=== PATIENT | male | born 1965 | race Caucasian/White ===

== ENCOUNTER 2017-04-27 21:25 | Emergency (ER) | payer MEDICAID ==
[~2017-04-27] VITALS: Ht 167.6 cm; Wt 65.8 kg
[2017-04-27 21:30] VITALS: BP 123/80
[2017-04-28] MEDS ORDERED: IBUPROFEN 600 MG TAB PO ONE (00:30)
[2017-04-28] MEDS ORDERED: TETANUS-DIPTH-ACEL PERTUSSIS 0.5ML SYRG IM ONE (00:45)
== END 2017-04-28 00:52 | disposition home or self-care (01) ==
LOC: ER 21:27
DX: S01.81XA Laceration without foreign body of other part of head, initial encounter (principal); S00.93XA Contusion of unspecified part of head, initial encounter; F17.210 Nicotine dependence, cigarettes, uncomplicated; F12.10 Cannabis abuse, uncomplicated; W22.8XXA Striking against or struck by other objects, initial encounter; Y93.89 Activity, other specified; Y99.8 Other external cause status; Y92.89 Other specified places as the place of occurrence of the external cause
CPT/HCPCS: 12013; 70450; 70486; 90471

== ENCOUNTER 2022-04-20 18:15 | Inpatient (IN) | payer MEDICAID ==
[~2022-04-20] VITALS: Ht 172.7 cm; Wt 57.0 kg
[2022-04-20] MEDS ORDERED: SODIUM CHLORIDE 0.9% 1,000 ML IVB ONE (18:30)
[2022-04-20] MEDS ORDERED: HALOPERIDOL LACTATE 5 MG/ML INJ VIAL IM ONE (18:30)
[2022-04-20] MEDS ORDERED: diphenhdrAMINE HCL 50 MG/1 ML VL IV ONE (18:30)
[2022-04-20] MEDS ORDERED: LORazepam 2MG/ML-1ML VIAL IV ONE (18:30)
[2022-04-20 19:02] LABS: Basophils # (auto) 0.1 10 ^3/uL (0-0.2); Basophils % (auto) 0.7 % (0.0-2.0); Eosinophils # (auto) 0 10 ^3/uL (0-0.8); Eosinophils % (auto) 0.1 % (0.0-7.0); Hematocrit 42.2 % (41.0-53.0); Hemoglobin 14.4 g/dL (13.5-17.5); Lymphocytes # (auto) 1.4 10 ^3/uL (0.4-5.4); Mean Corpuscular Hemoglobin 29.4 pg (28.0-32.0); Mean Corpuscular Volume 86.5 fL (80.0-100.0); Monocytes # (auto) 0.8 10 ^3/uL (0-1.3); Monocytes % (auto) 10.1 % (0.0-12.0); Neutrophils % (auto) 72.1 % (37.0-80.0); Nucleated Red Blood Cells % 0.1 %; Red Blood Cells 4.88 10^6/uL (4.5-5.90); White Blood Cell 8.3 10^3/uL (4.4-10.8)
[2022-04-20 19:14] LABS: Alanine Aminotransferase 30 U/L (16-61); Albumin 4.5 g/dL (3.4-5.0); Anion Gap 10 (5-15); Aspartate Aminotransferase 17 U/L (15-37); BUN/Creatinine Ratio 27.1; Blood Alcohol < 3.0 mg/dL (0-5); Blood Urea Nitrogen 26 mg/dL (7-18); Calcium 9.2 mg/dL (8.5-10.1); Carbon Dioxide 24 mmol/L (21-32); Chloride 112 mmol/L (98-107); GFR African American 104 mL/min; GFR Non-African American 86 mL/min; Glucose 105 mg/dL (74-106); Potassium 3.9 mmol/L (3.5-5.1); Sodium 146 mmol/L (136-145)
[2022-04-20 19:17] LABS: Alkaline Phosphatase 56 U/L (45-117); Bilirubin, Total 0.6 mg/dL (0.2-1.0); Total Protein 7.5 g/dL (6.4-8.2)
[2022-04-20] MEDS ORDERED: HYDROcodone-ACET 5/325MG TAB PO PRN (22:30)
[2022-04-20] MEDS ORDERED: ACETAMINOPHEN 325 MG TAB PO PRN (22:30)
[2022-04-20] MEDS ORDERED: NITROGLYCERIN 0.4 MG SL TAB SL PRN (22:30)
[2022-04-20] MEDS ORDERED: DOCUSATE SOD 100 MG CAP PO PRN (22:30)
[2022-04-20] MEDS ORDERED: ONDANSETRON HCL 4 MG/2 ML VIAL IV PRN (22:30)
[2022-04-20] MEDS ORDERED: MORPHINE SULFATE INJ 2 MG/ml SYRG IV PRN ×2 (22:30)
[2022-04-20] MEDS: HALOPERIDOL LACTATE 5 MG/ML INJ VIAL IM PRN (23:45)
[2022-04-20] MEDS: SODIUM CHLORIDE 0.9% 1,000 ML IV SCH (23:45)
[2022-04-21] MEDS: SODIUM CHLORIDE 0.9% 1,000 ML IV SCH ×3 (07:04→23:30)
[2022-04-21] MEDS ORDERED: hydrOXYzine 25 MG TAB or CAP PO PRN (10:00)
[2022-04-21 10:21] VITALS: BP 127/61
[2022-04-21 10:23] LABS: Basophils # (auto) 0 10 ^3/uL (0-0.2); Basophils % (auto) 0.5 % (0.0-2.0); Eosinophils # (auto) 0 10 ^3/uL (0-0.8); Eosinophils % (auto) 0.5 % (0.0-7.0); Hematocrit 37.2 % (41.0-53.0); Hemoglobin 12.6 g/dL (13.5-17.5); Lymphocytes % (auto) 22.7 % (10.0-50.0); Mean Corpuscular Hemoglobin 29.3 pg (28.0-32.0); Mean Corpuscular Hgb Conc. 33.8 g/dL (32.0-36.0); Mean Corpuscular Volume 86.7 fL (80.0-100.0); Monocytes # (auto) 0.8 10 ^3/uL (0-1.3); Monocytes % (auto) 8.9 % (0.0-12.0); Neutrophils % (auto) 67.4 % (37.0-80.0); Red Cell Distribution Width 14.1 % (11.8-14.3); White Blood Cell 8.9 10^3/uL (4.4-10.8)
[2022-04-21 10:32] LABS: Albumin 3.5 g/dL (3.4-5.0); Calcium 8.4 mg/dL (8.5-10.1); Potassium 3.6 mmol/L (3.5-5.1)
[2022-04-21 10:35] LABS: BUN/Creatinine Ratio 26.8; Bilirubin, Total 0.5 mg/dL (0.2-1.0); Total Protein 6.2 g/dL (6.4-8.2)
[2022-04-21 13:00] VITALS: BP 93/52
[2022-04-21 17:00] VITALS: BP 90/55
[2022-04-21 21:30] LABS: Urine Bacteria FEW /hpf (None Seen); Urine Blood Negative /uL (Negative); Urine Hyaline Cast FEW /lpf (0 - 2); Urine Mucus FEW (None Seen); Urine Specific Gravity 1.038 (1.001-1.035); Urine WBC 8 /hpf (0 - 3)
[2022-04-21 21:33] LABS: Alcohol, Urine < 3.0 mg/dL (0-10); Amphetamine Screen, Urine NEGATIVE (NEGATIVE); Barbiturate Scree,Urine NEGATIVE (NEGATIVE); Benzodiazephine Screen, Urine POSITIVE (NEGATIVE); Cannabinoid Screen, Urine POSITIVE (NEGATIVE); Cocaine Screen, Urine NEGATIVE (NEGATIVE); Opiate Scree,Urine NEGATIVE (NEGATIVE); Phencyclidine Screen, Urine NEGATIVE (NEGATIVE)
[2022-04-21 22:00] VITALS: BP 111/67
[2022-04-22 04:40] VITALS: BP 102/68
[2022-04-22] MEDS: SODIUM CHLORIDE 0.9% 1,000 ML IV SCH ×2 (07:24→15:45)
[2022-04-22 17:19] VITALS: BP 120/85
[2022-04-22 22:25] VITALS: BP 106/77
[2022-04-23] MEDS: SODIUM CHLORIDE 0.9% 1,000 ML IV SCH ×3 (00:47→17:10)
[2022-04-23 09:00] VITALS: BP 119/74
[2022-04-23 13:00] VITALS: BP 133/87
[2022-04-23 17:00] VITALS: BP 127/86
[2022-04-23] MEDS: risperiDONE 1 MG TAB PO SCH (21:22)
[2022-04-23 21:42] VITALS: BP 121/79
[2022-04-24] MEDS: SODIUM CHLORIDE 0.9% 1,000 ML IV SCH ×3 (04:18→18:10)
[2022-04-24 05:00] VITALS: BP 139/97
[2022-04-24 08:21] VITALS: BP 135/92
[2022-04-24] MEDS: risperiDONE 1 MG TAB PO SCH ×2 (09:40→22:04)
[2022-04-24 12:02] VITALS: BP 139/96
[2022-04-24 16:02] VITALS: BP 137/91
[2022-04-24 22:00] VITALS: BP 111/72
[2022-04-25] MEDS: SODIUM CHLORIDE 0.9% 1,000 ML IV SCH ×3 (02:30→19:10)
[2022-04-25 05:00] VITALS: BP 133/83
[2022-04-25 09:00] VITALS: BP 122/81
[2022-04-25] MEDS: risperiDONE 1 MG TAB PO SCH ×2 (09:23→22:13)
[2022-04-25 13:00] VITALS: BP 127/81
[2022-04-25 17:00] VITALS: BP 101/70
[2022-04-25 21:36] VITALS: BP 123/83
[2022-04-26] MEDS: SODIUM CHLORIDE 0.9% 1,000 ML IV SCH ×3 (03:30→20:10)
[2022-04-26 05:08] VITALS: BP 125/83
[2022-04-26 06:18] LABS: Basophils # (auto) 0.1 10 ^3/uL (0-0.2); Basophils % (auto) 0.8 % (0.0-2.0); Eosinophils # (auto) 0.2 10 ^3/uL (0-0.8); Eosinophils % (auto) 2.4 % (0.0-7.0); Hematocrit 48.9 % (41.0-53.0); Hemoglobin 16.2 g/dL (13.5-17.5); Lymphocytes # (auto) 3.6 10 ^3/uL (0.4-5.4); Lymphocytes % (auto) 37.8 % (10.0-50.0); Mean Corpuscular Hemoglobin 28.8 pg (28.0-32.0); Mean Corpuscular Hgb Conc. 33.2 g/dL (32.0-36.0); Mean Corpuscular Volume 86.9 fL (80.0-100.0); Monocytes # (auto) 0.7 10 ^3/uL (0-1.3); Monocytes % (auto) 7.1 % (0.0-12.0); Neutrophils # (auto) 4.9 10 ^3/uL (1.6-8.6); Neutrophils % (auto) 51.9 % (37.0-80.0); Nucleated Red Blood Cells % 0.1 %; Red Blood Cells 5.63 10^6/uL (4.5-5.90); White Blood Cell 9.5 10^3/uL (4.4-10.8)
[2022-04-26 06:36] LABS: BUN/Creatinine Ratio 20.5; Calcium 9.3 mg/dL (8.5-10.1); Potassium 4.3 mmol/L (3.5-5.1)
[2022-04-26 09:00] VITALS: BP 124/83
[2022-04-26] MEDS: risperiDONE 1 MG TAB PO SCH ×2 (10:00→21:52)
[2022-04-26] MEDS: HALOPERIDOL LACTATE 5 MG/ML INJ VIAL IM PRN (10:54)
[2022-04-26 13:00] VITALS: BP 139/88
[2022-04-26 17:00] VITALS: BP 120/79
[2022-04-26 22:00] VITALS: BP 111/65
[2022-04-27] MEDS: HALOPERIDOL LACTATE 5 MG/ML INJ VIAL IM PRN (02:15)
[2022-04-27] MEDS: SODIUM CHLORIDE 0.9% 1,000 ML IV SCH ×4 (04:30→21:57)
[2022-04-27 08:49] VITALS: BP 134/83
[2022-04-27] MEDS: risperiDONE 1 MG TAB PO SCH ×2 (10:30→21:52)
[2022-04-27 13:00] VITALS: BP 124/76
[2022-04-27 16:51] VITALS: BP 134/82
[2022-04-27 22:04] VITALS: BP 135/83
[2022-04-28] MEDS: HALOPERIDOL LACTATE 5 MG/ML INJ VIAL IM PRN (02:02)
[2022-04-28 04:58] VITALS: BP 113/73
[2022-04-28 09:14] VITALS: BP_SYST 113; BP_SYST 120; BP_DIAS 73; BP_DIAS 74
[2022-04-28] MEDS: risperiDONE 1 MG TAB PO SCH (09:55)
[2022-04-28] MEDS ORDERED: OLANZapine 5 MG TAB PO SCH (11:45)
[2022-04-28 13:00] VITALS: BP 123/77
[2022-04-28] MEDS: SODIUM CHLORIDE 0.9% 1,000 ML IV SCH (13:50)
[2022-04-28 17:00] VITALS: BP 132/79
[2022-04-28] MEDS ORDERED: risperiDONE 1 MG TAB PO SCH (22:00)
[2022-04-28] MEDS ORDERED: QUEtiapine FUMARATE 25 MG TAB PO SCH (22:00)
== END 2022-04-28 19:21 | disposition left against medical advice (07) | DRG 751 ==
LOC: ER 18:15 → EDBD 18:15 → TELE 22:25 → TELE-WESTW 04-21 09:26 → WEST WING 04-24 18:42 → TELE-EAST 04-26 16:17 → EAST 04-26 19:18
PROVIDERS: ADMIT Internal Medicine; ATTEND Internal Medicine
DX: F23 Brief psychotic disorder (principal); F17.210 Nicotine dependence, cigarettes, uncomplicated; F19.10 Other psychoactive substance abuse, uncomplicated; Z20.822 Contact with and (suspected) exposure to COVID-19
CPT/HCPCS: 36415; 70450; 80048; 80053; 80307; 80320; 81001; 85025; 96361; 96372; 96374; 96375; G0378

== ENCOUNTER 2022-06-23 09:10 | Emergency (ER) | payer MEDICAID ==
[~2022-06-23] VITALS: Ht 205.7 cm; Wt 77.0 kg
[2022-06-23 09:20] VITALS: BP 118/81
[2022-06-23 09:59] LABS: Basophils # (auto) 0.1 10 ^3/uL (0-0.2); Basophils % (auto) 0.8 % (0.0-2.0); Eosinophils # (auto) 0 10 ^3/uL (0-0.8); Eosinophils % (auto) 0.4 % (0.0-7.0); Hemoglobin 13.9 g/dL (13.5-17.5); Lymphocytes # (auto) 1.7 10 ^3/uL (0.4-5.4); Lymphocytes % (auto) 21.7 % (10.0-50.0); Mean Corpuscular Hemoglobin 29.4 pg (28.0-32.0); Mean Corpuscular Hgb Conc. 33.1 g/dL (32.0-36.0); Mean Corpuscular Volume 88.8 fL (80.0-100.0); Monocytes # (auto) 0.6 10 ^3/uL (0-1.3); Monocytes % (auto) 7.5 % (0.0-12.0); Neutrophils # (auto) 5.4 10 ^3/uL (1.6-8.6); Neutrophils % (auto) 69.6 % (37.0-80.0); Nucleated Red Blood Cells % 0.1 %; Red Blood Cells 4.73 10^6/uL (4.5-5.90); Red Cell Distribution Width 14.2 % (11.8-14.3); White Blood Cell 7.8 10^3/uL (4.4-10.8)
[2022-06-23 10:09] LABS: Albumin 3.9 g/dL (3.4-5.0); Calcium 8.6 mg/dL (8.5-10.1); Potassium 4.2 mmol/L (3.5-5.1)
[2022-06-23 10:13] LABS: BUN/Creatinine Ratio 22.7; Bilirubin, Total 0.3 mg/dL (0.2-1.0); Total Protein 6.9 g/dL (6.4-8.2)
[2022-06-23] MEDS: LORazepam 2MG/ML-1ML VIAL ONE (11:10)
[2022-06-23] MEDS: LORazepam 2MG/ML-1ML VIAL IV ONE (11:26)
[2022-06-23 11:51] LABS: Urine Bacteria FEW /hpf (None Seen); Urine Blood Negative /uL (Negative); Urine Mucus FEW (None Seen); Urine Specific Gravity 1.022 (1.001-1.035); Urine WBC 88 /hpf (0 - 3)
[2022-06-23] MEDS: CIPROFLOXACIN HCL 500 MG TAB PO ONE (12:31)
[2022-06-23 12:57] LABS: Alcohol, Urine < 3.0 mg/dL (0-10); Barbiturate Scree,Urine NEGATIVE (NEGATIVE); Benzodiazephine Screen, Urine NEGATIVE (NEGATIVE); Cocaine Screen, Urine NEGATIVE (NEGATIVE); Phencyclidine Screen, Urine NEGATIVE (NEGATIVE)
[2022-06-23 13:05] LABS: Amphetamine Screen, Urine NEGATIVE (NEGATIVE); Cannabinoid Screen, Urine POSITIVE (NEGATIVE); Opiate Scree,Urine NEGATIVE (NEGATIVE)
[2022-06-23] MEDS ORDERED: CIPR-173 PO (15:47)
== END 2022-06-23 16:36 | disposition home or self-care (01) ==
LOC: ER 09:10 → EDBD 09:10 → ER 16:36
DX: R41.82 Altered mental status, unspecified (principal); F20.9 Schizophrenia, unspecified; F15.10 Other stimulant abuse, uncomplicated; F17.210 Nicotine dependence, cigarettes, uncomplicated; F14.10 Cocaine abuse, uncomplicated
CPT/HCPCS: 36415; 80053; 80307; 81001; 85025; 87040; 93005; 96374; 99284; J2060

== ENCOUNTER 2022-07-12 16:21 | Inpatient (IN) | payer MEDICAID ==
[~2022-07-12] VITALS: Ht 170.2 cm; Wt 62.7 kg
[~2022-07-12 16:21] MED LIST: CIPR-173 PO
[2022-07-12] MEDS ORDERED: diphenhdrAMINE HCL 50 MG/1 ML VL IV ONE (16:30)
[2022-07-12] MEDS ORDERED: LORazepam 2MG/ML-1ML VIAL IV ONE (16:30)
[2022-07-12] MEDS ORDERED: HALOPERIDOL LACTATE 5 MG/ML INJ VIAL IM ONE (16:30)
[2022-07-12 18:34] LABS: Basophils # (auto) 0 10 ^3/uL (0-0.2); Basophils % (auto) 0.4 % (0.0-2.0); Eosinophils # (auto) 0.1 10 ^3/uL (0-0.8); Eosinophils % (auto) 1.2 % (0.0-7.0); Hematocrit 39.6 % (41.0-53.0); Hemoglobin 13.2 g/dL (13.5-17.5); Lymphocytes # (auto) 2.9 10 ^3/uL (0.4-5.4); Mean Corpuscular Hemoglobin 29.4 pg (28.0-32.0); Mean Corpuscular Hgb Conc. 33.3 g/dL (32.0-36.0); Mean Corpuscular Volume 88.4 fL (80.0-100.0); Monocytes # (auto) 0.7 10 ^3/uL (0-1.3); Monocytes % (auto) 8.2 % (0.0-12.0); Neutrophils # (auto) 4.9 10 ^3/uL (1.6-8.6); Neutrophils % (auto) 57.2 % (37.0-80.0); Red Blood Cells 4.48 10^6/uL (4.5-5.90); White Blood Cell 8.7 10^3/uL (4.4-10.8)
[2022-07-12 18:51] LABS: Anion Gap 3 (5-15); Blood Alcohol < 3.0 mg/dL (0-5); Blood Urea Nitrogen 19 mg/dL (7-18); Calcium 8.7 mg/dL (8.5-10.1); Carbon Dioxide 35 mmol/L (21-32); Chloride 101 mmol/L (98-107); Glucose 91 mg/dL (74-106); Potassium 4.3 mmol/L (3.5-5.1); Sodium 139 mmol/L (136-145)
[2022-07-12 18:55] LABS: Alcohol, Urine < 3.0 mg/dL (0-10); Amphetamine Screen, Urine NEGATIVE (NEGATIVE); Barbiturate Scree,Urine NEGATIVE (NEGATIVE); Benzodiazephine Screen, Urine NEGATIVE (NEGATIVE); Cannabinoid Screen, Urine NEGATIVE (NEGATIVE); Cocaine Screen, Urine NEGATIVE (NEGATIVE); Opiate Scree,Urine NEGATIVE (NEGATIVE); Phencyclidine Screen, Urine NEGATIVE (NEGATIVE)
[2022-07-12 18:55] LABS: Alanine Aminotransferase 35 U/L (16-61); Alkaline Phosphatase 87 U/L (45-117); Aspartate Aminotransferase 13 U/L (15-37); BUN/Creatinine Ratio 20.7; Bilirubin, Total 0.2 mg/dL (0.2-1.0); GFR African American 109 mL/min; GFR Non-African American 90 mL/min; Total Protein 6.4 g/dL (6.4-8.2)
[2022-07-13] MEDS ORDERED: LORazepam 2MG/ML-1ML VIAL IM ONE ×2 (01:00→01:15)
[2022-07-13] MEDS ORDERED: HALOPERIDOL LACTATE 5 MG/ML INJ VIAL IM ONE ×2 (01:00→01:15)
[2022-07-13] MEDS ORDERED: diphenhdrAMINE HCL 50 MG/1 ML VL IM ONE (01:00)
[2022-07-13] MEDS ORDERED: OLANZapine 5 MG TAB PO SCH (22:00)
[2022-07-13] MEDS: OLANZapine 5 MG TAB PO SCH (22:58)
[2022-07-13 23:51] LABS: Urine Amorphous Crystal FEW /hpf (None Seen); Urine Bacteria FEW /hpf (None Seen); Urine Blood Negative /uL (Negative); Urine Specific Gravity 1.016 (1.001-1.035); Urine WBC 2 /hpf (0 - 3)
[2022-07-14] MEDS: OLANZapine 5 MG TAB PO SCH ×2 (09:45→22:00)
[2022-07-15] MEDS ORDERED: diphenhdrAMINE HCL 50 MG/1 ML VL IM ONE (05:30)
[2022-07-15] MEDS: OLANZapine 5 MG TAB PO SCH ×2 (10:07→22:31)
[2022-07-15] MEDS ORDERED: LORazepam 2MG/ML-1ML VIAL IM ONE (12:45)
[2022-07-15] MEDS ORDERED: MORPHINE SULFATE INJ 2 MG/ml SYRG IV PRN ×2 (14:00→14:45)
[2022-07-15] MEDS ORDERED: NITROGLYCERIN 0.4 MG SL TAB SL PRN ×2 (14:00→14:45)
[2022-07-15] MEDS ORDERED: ONDANSETRON HCL 4 MG/2 ML VIAL IV PRN (14:45)
[2022-07-15] MEDS ORDERED: ACETAMINOPHEN 325 MG TAB PO PRN (14:45)
[2022-07-15] MEDS ORDERED: HYDROcodone-ACET 5/325MG TAB PO PRN (14:45)
[2022-07-15 14:48] LABS: Basophils # (auto) 0.1 10 ^3/uL (0-0.2); Basophils % (auto) 0.8 % (0.0-2.0); Eosinophils # (auto) 0.1 10 ^3/uL (0-0.8); Eosinophils % (auto) 1.1 % (0.0-7.0); Hematocrit 48.8 % (41.0-53.0); Lymphocytes # (auto) 2.2 10 ^3/uL (0.4-5.4); Lymphocytes % (auto) 24.5 % (10.0-50.0); Mean Corpuscular Hemoglobin 29.2 pg (28.0-32.0); Mean Corpuscular Hgb Conc. 32.7 g/dL (32.0-36.0); Mean Corpuscular Volume 89.1 fL (80.0-100.0); Monocytes # (auto) 0.5 10 ^3/uL (0-1.3); Monocytes % (auto) 5.7 % (0.0-12.0); Neutrophils # (auto) 6.2 10 ^3/uL (1.6-8.6); Neutrophils % (auto) 67.9 % (37.0-80.0); Nucleated Red Blood Cells % 0.1 %; Red Blood Cells 5.48 10^6/uL (4.5-5.90); Red Cell Distribution Width 13.9 % (11.8-14.3); White Blood Cell 9.2 10^3/uL (4.4-10.8)
[2022-07-15 15:07] LABS: BUN/Creatinine Ratio 19.2; Calcium 8.9 mg/dL (8.5-10.1); Potassium 4.9 mmol/L (3.5-5.1)
[2022-07-15 15:10] LABS: Bilirubin, Total 0.4 mg/dL (0.2-1.0); Total Protein 7.2 g/dL (6.4-8.2)
[2022-07-15] MEDS ORDERED: LORazepam 2MG/ML-1ML VIAL IV PRN (20:30)
[2022-07-16 06:34] LABS: Basophils # (auto) 0 10 ^3/uL (0-0.2); Basophils % (auto) 0.5 % (0.0-2.0); Eosinophils # (auto) 0.2 10 ^3/uL (0-0.8); Eosinophils % (auto) 2.2 % (0.0-7.0); Hematocrit 42.9 % (41.0-53.0); Hemoglobin 14.2 g/dL (13.5-17.5); Lymphocytes # (auto) 3.7 10 ^3/uL (0.4-5.4); Lymphocytes % (auto) 42.7 % (10.0-50.0); Mean Corpuscular Hemoglobin 29.2 pg (28.0-32.0); Mean Corpuscular Hgb Conc. 33.2 g/dL (32.0-36.0); Mean Corpuscular Volume 87.9 fL (80.0-100.0); Monocytes # (auto) 0.6 10 ^3/uL (0-1.3); Monocytes % (auto) 7.5 % (0.0-12.0); Neutrophils # (auto) 4.1 10 ^3/uL (1.6-8.6); Neutrophils % (auto) 47.1 % (37.0-80.0); Red Blood Cells 4.88 10^6/uL (4.5-5.90); Red Cell Distribution Width 13.9 % (11.8-14.3); White Blood Cell 8.6 10^3/uL (4.4-10.8)
[2022-07-16 06:58] LABS: Albumin 3.6 g/dL (3.4-5.0); Calcium 8.6 mg/dL (8.5-10.1); Potassium 4.6 mmol/L (3.5-5.1)
[2022-07-16 07:00] LABS: BUN/Creatinine Ratio 18.1; Bilirubin, Total 0.5 mg/dL (0.2-1.0); Total Protein 6.2 g/dL (6.4-8.2)
[2022-07-16] MEDS: OLANZapine 5 MG TAB PO SCH ×2 (10:03→22:23)
[2022-07-16 22:00] VITALS: BP 125/76
[2022-07-16 23:48] VITALS: BP 125/70
[2022-07-17 05:00] VITALS: BP 119/68
[2022-07-17 08:00] VITALS: BP 12/77
[2022-07-17 09:00] VITALS: BP 127/77
[2022-07-17] MEDS: OLANZapine 5 MG TAB PO SCH ×2 (09:42→22:33)
[2022-07-17 13:00] VITALS: BP 116/75
[2022-07-17 16:54] VITALS: BP 125/78
[2022-07-17] MEDS ORDERED: HALOPERIDOL LACTATE 5 MG/ML INJ VIAL IM PRN (17:30)
[2022-07-18] MEDS: HALOPERIDOL LACTATE 5 MG/ML INJ VIAL IM PRN ×2 (01:48→14:30)
[2022-07-18] MEDS: OLANZapine 5 MG TAB PO SCH ×2 (11:27→22:19)
[2022-07-18 22:00] VITALS: BP 113/69
[2022-07-19 05:00] VITALS: BP 115/77
[2022-07-19] MEDS: OLANZapine 5 MG TAB PO SCH ×2 (09:31→21:45)
[2022-07-19 13:00] VITALS: BP 132/79
[2022-07-19] MEDS: HALOPERIDOL LACTATE 5 MG/ML INJ VIAL IM PRN ×2 (13:48→20:15)
[2022-07-19 17:00] VITALS: BP 128/88
[2022-07-19 22:00] VITALS: BP 126/71
[2022-07-20 05:00] VITALS: BP 128/72
[2022-07-20 06:35] LABS: Basophils # (auto) 0.1 10 ^3/uL (0-0.2); Basophils % (auto) 0.6 % (0.0-2.0); Eosinophils # (auto) 0.1 10 ^3/uL (0-0.8); Eosinophils % (auto) 1.5 % (0.0-7.0); Hematocrit 40.3 % (41.0-53.0); Hemoglobin 13.5 g/dL (13.5-17.5); Lymphocytes # (auto) 2.7 10 ^3/uL (0.4-5.4); Lymphocytes % (auto) 27.8 % (10.0-50.0); Mean Corpuscular Hemoglobin 29.6 pg (28.0-32.0); Mean Corpuscular Hgb Conc. 33.6 g/dL (32.0-36.0); Mean Corpuscular Volume 88.2 fL (80.0-100.0); Monocytes % (auto) 9.9 % (0.0-12.0); Neutrophils # (auto) 5.8 10 ^3/uL (1.6-8.6); Neutrophils % (auto) 60.2 % (37.0-80.0); Red Blood Cells 4.56 10^6/uL (4.5-5.90); Red Cell Distribution Width 13.9 % (11.8-14.3); White Blood Cell 9.7 10^3/uL (4.4-10.8)
[2022-07-20 06:41] LABS: BUN/Creatinine Ratio 19.4; Calcium 8.6 mg/dL (8.5-10.1); Potassium 4.7 mmol/L (3.5-5.1)
[2022-07-20 08:56] VITALS: BP 135/80
[2022-07-20] MEDS: OLANZapine 5 MG TAB PO SCH ×2 (11:02→21:39)
[2022-07-20 13:00] VITALS: BP 115/80
[2022-07-20 17:00] VITALS: BP 118/84
[2022-07-21 09:00] VITALS: BP 117/67
[2022-07-21] MEDS: OLANZapine 5 MG TAB PO SCH ×2 (09:43→21:09)
[2022-07-21 16:46] VITALS: BP 132/72
[2022-07-21 22:00] VITALS: BP 116/77
[2022-07-22 05:00] VITALS: BP 108/65
[2022-07-22] MEDS: OLANZapine 5 MG TAB PO SCH ×2 (09:17→21:04)
[2022-07-22 13:00] VITALS: BP 127/87
[2022-07-22 17:00] VITALS: BP 125/73
[2022-07-22] MEDS: HALOPERIDOL LACTATE 5 MG/ML INJ VIAL IM PRN (20:53)
[2022-07-22 22:00] VITALS: BP 105/57
[2022-07-23 05:01] VITALS: BP 114/77
[2022-07-23 06:46] LABS: Calcium 8.8 mg/dL (8.5-10.1); Potassium 4.1 mmol/L (3.5-5.1)
[2022-07-23 08:05] VITALS: BP 126/73
[2022-07-23 09:00] VITALS: BP 126/73
[2022-07-23] MEDS: OLANZapine 5 MG TAB PO SCH ×2 (09:47→21:03)
[2022-07-23 13:00] VITALS: BP 117/77
[2022-07-23 22:00] VITALS: BP 137/70
[2022-07-24] MEDS: HALOPERIDOL LACTATE 5 MG/ML INJ VIAL IM PRN (00:57)
[2022-07-24] MEDS: OLANZapine 5 MG TAB PO SCH ×2 (09:38→21:19)
[2022-07-24] MEDS: HALOPERIDOL 5 MG TAB PO PRN (21:19)
[2022-07-25 06:20] LABS: Basophils # (auto) 0.1 10 ^3/uL (0-0.2); Eosinophils # (auto) 0.1 10 ^3/uL (0-0.8); Eosinophils % (auto) 0.9 % (0.0-7.0); Hematocrit 39.5 % (41.0-53.0); Hemoglobin 13.3 g/dL (13.5-17.5); Lymphocytes # (auto) 2.4 10 ^3/uL (0.4-5.4); Lymphocytes % (auto) 30.3 % (10.0-50.0); Mean Corpuscular Hemoglobin 29.3 pg (28.0-32.0); Mean Corpuscular Hgb Conc. 33.6 g/dL (32.0-36.0); Mean Corpuscular Volume 87.2 fL (80.0-100.0); Monocytes # (auto) 0.6 10 ^3/uL (0-1.3); Monocytes % (auto) 8.2 % (0.0-12.0); Neutrophils # (auto) 4.6 10 ^3/uL (1.6-8.6); Neutrophils % (auto) 59.6 % (37.0-80.0); Nucleated Red Blood Cells % 0.1 %; Red Blood Cells 4.53 10^6/uL (4.5-5.90); Red Cell Distribution Width 13.8 % (11.8-14.3); White Blood Cell 7.8 10^3/uL (4.4-10.8)
[2022-07-25 06:31] LABS: Albumin 3.4 g/dL (3.4-5.0); Calcium 8.7 mg/dL (8.5-10.1)
[2022-07-25 06:35] LABS: BUN/Creatinine Ratio 22.5; Bilirubin, Total 0.3 mg/dL (0.2-1.0); Total Protein 6.1 g/dL (6.4-8.2)
[2022-07-25] MEDS: OLANZapine 5 MG TAB PO SCH ×2 (11:06→22:53)
[2022-07-25] MEDS: HALOPERIDOL 5 MG TAB PO PRN ×2 (11:06→23:56)
[2022-07-25] MEDS: HALOPERIDOL LACTATE 5 MG/ML INJ VIAL IM PRN (17:58)
[2022-07-26] MEDS: HALOPERIDOL LACTATE 5 MG/ML INJ VIAL IM PRN ×2 (05:55→19:08)
[2022-07-26 09:00] VITALS: BP 145/90
[2022-07-26] MEDS: OLANZapine 5 MG TAB PO SCH ×2 (10:41→21:24)
[2022-07-26 13:00] VITALS: BP 114/76
[2022-07-26 17:00] VITALS: BP 113/64
[2022-07-26 20:15] VITALS: BP 130/88
[2022-07-27] MEDS: OLANZapine 5 MG TAB PO SCH ×2 (08:48→21:06)
[2022-07-27] MEDS: HALOPERIDOL 5 MG TAB PO PRN ×2 (10:24→23:20)
[2022-07-27 12:30] VITALS: BP 132/74
[2022-07-28 08:18] VITALS: BP 133/84
[2022-07-28] MEDS: HALOPERIDOL LACTATE 5 MG/ML INJ VIAL IM PRN (09:17)
[2022-07-28] MEDS: OLANZapine 5 MG TAB PO SCH ×2 (09:54→21:16)
[2022-07-29] MEDS: HALOPERIDOL 5 MG TAB PO PRN (04:36)
[2022-07-29 08:45] VITALS: BP 127/80
[2022-07-29] MEDS: OLANZapine 5 MG TAB PO SCH ×2 (09:45→22:18)
[2022-07-29 14:01] VITALS: BP 131/85
[2022-07-29 18:00] VITALS: BP 126/78
[2022-07-29 20:00] VITALS: BP 113/72
[2022-07-29 22:41] VITALS: BP 113/72
[2022-07-30 05:57] VITALS: BP 113/80
[2022-07-30 09:00] VITALS: BP 128/93
[2022-07-30] MEDS: OLANZapine 5 MG TAB PO SCH ×2 (09:30→21:10)
[2022-07-30 13:00] VITALS: BP 127/78
[2022-07-30 16:49] VITALS: BP 128/81
[2022-07-30 20:00] VITALS: BP 114/78
[2022-07-30 21:38] VITALS: BP 114/78
[2022-07-31 05:17] VITALS: BP 97/45
[2022-07-31 06:34] LABS: Basophils # (auto) 0.1 10 ^3/uL (0-0.2); Basophils % (auto) 0.8 % (0.0-2.0); Eosinophils # (auto) 0.1 10 ^3/uL (0-0.8); Eosinophils % (auto) 1.3 % (0.0-7.0); Hematocrit 40.4 % (41.0-53.0); Hemoglobin 13.8 g/dL (13.5-17.5); Lymphocytes # (auto) 2.6 10 ^3/uL (0.4-5.4); Lymphocytes % (auto) 33.4 % (10.0-50.0); Mean Corpuscular Hemoglobin 30.4 pg (28.0-32.0); Mean Corpuscular Hgb Conc. 34.2 g/dL (32.0-36.0); Mean Corpuscular Volume 89.1 fL (80.0-100.0); Monocytes # (auto) 0.7 10 ^3/uL (0-1.3); Monocytes % (auto) 8.8 % (0.0-12.0); Neutrophils # (auto) 4.4 10 ^3/uL (1.6-8.6); Neutrophils % (auto) 55.7 % (37.0-80.0); Red Blood Cells 4.53 10^6/uL (4.5-5.90); Red Cell Distribution Width 14.3 % (11.8-14.3); White Blood Cell 7.8 10^3/uL (4.4-10.8)
[2022-07-31 06:58] LABS: Albumin 3.3 g/dL (3.4-5.0); Calcium 8.8 mg/dL (8.5-10.1); Magnesium 2.6 mg/dL (1.6-2.6); Potassium 4.4 mmol/L (3.5-5.1)
[2022-07-31 07:02] LABS: BUN/Creatinine Ratio 20.3; Bilirubin, Total 0.4 mg/dL (0.2-1.0)
[2022-07-31 09:00] VITALS: BP 125/83
[2022-07-31] MEDS: OLANZapine 5 MG TAB PO SCH ×2 (09:11→21:39)
[2022-07-31 13:00] VITALS: BP 121/74
[2022-07-31] MEDS: HALOPERIDOL LACTATE 5 MG/ML INJ VIAL IM PRN (14:20)
[2022-07-31 20:30] VITALS: BP 128/81
[2022-08-01] MEDS: OLANZapine 5 MG TAB PO SCH ×2 (09:13→23:13)
[2022-08-01] MEDS: HALOPERIDOL 5 MG TAB PO PRN (09:13)
[2022-08-01 09:16] VITALS: BP 120/74
[2022-08-01 22:00] VITALS: BP 101/61
[2022-08-02] MEDS: HALOPERIDOL 5 MG TAB PO PRN (01:46)
[2022-08-02 06:19] VITALS: BP 129/84
[2022-08-02] MEDS: HALOPERIDOL LACTATE 5 MG/ML INJ VIAL IM PRN (06:25)
[2022-08-02 09:00] VITALS: BP 129/81
[2022-08-02] MEDS: OLANZapine 5 MG TAB PO SCH ×2 (10:32→22:03)
[2022-08-02 12:21] VITALS: BP 126/79
[2022-08-02 17:00] VITALS: BP 132/90
[2022-08-02 22:00] VITALS: BP 136/90
[2022-08-03] MEDS: HALOPERIDOL 5 MG TAB PO PRN (02:51)
[2022-08-03 05:00] VITALS: BP 121/81
[2022-08-03 08:30] VITALS: BP 131/89
[2022-08-03] MEDS: OLANZapine 5 MG TAB PO SCH ×2 (09:58→21:30)
[2022-08-03 13:00] VITALS: BP_SYST 131; BP_SYST 140; BP_DIAS 75; BP_DIAS 89
[2022-08-03] MEDS: HALOPERIDOL LACTATE 5 MG/ML INJ VIAL IM PRN (15:20)
[2022-08-03] MEDS: HALOPERIDOL 5 MG TAB PO SCH (21:30)
[2022-08-03 22:00] VITALS: BP 129/81
[2022-08-04 05:00] VITALS: BP 114/72
[2022-08-04] MEDS: HALOPERIDOL 5 MG TAB PO SCH ×2 (09:04→22:45)
[2022-08-04] MEDS: OLANZapine 5 MG TAB PO SCH ×2 (09:04→22:45)
[2022-08-04] MEDS: diphenhdrAMINE HCL 25 MG CAP PO SCH (10:32)
[2022-08-04 11:08] LABS: Basophils # (auto) 0.1 10 ^3/uL (0-0.2); Basophils % (auto) 1.3 % (0.0-2.0); Eosinophils # (auto) 0.1 10 ^3/uL (0-0.8); Eosinophils % (auto) 0.9 % (0.0-7.0); Hematocrit 41.3 % (41.0-53.0); Hemoglobin 13.6 g/dL (13.5-17.5); Lymphocytes # (auto) 1.2 10 ^3/uL (0.4-5.4); Lymphocytes % (auto) 18.2 % (10.0-50.0); Mean Corpuscular Hemoglobin 29.4 pg (28.0-32.0); Mean Corpuscular Volume 89.1 fL (80.0-100.0); Monocytes # (auto) 0.5 10 ^3/uL (0-1.3); Monocytes % (auto) 8.1 % (0.0-12.0); Neutrophils # (auto) 4.7 10 ^3/uL (1.6-8.6); Neutrophils % (auto) 71.5 % (37.0-80.0); Nucleated Red Blood Cells % 0.1 %; Red Blood Cells 4.64 10^6/uL (4.5-5.90); White Blood Cell 6.6 10^3/uL (4.4-10.8)
[2022-08-04 11:13] LABS: Potassium 4.3 mmol/L (3.5-5.1)
[2022-08-04 11:19] LABS: Albumin 3.6 g/dL (3.4-5.0); BUN/Creatinine Ratio 22.8; Bilirubin, Total 0.2 mg/dL (0.2-1.0); Calcium 8.8 mg/dL (8.5-10.1); Total Protein 6.6 g/dL (6.4-8.2)
[2022-08-05] MEDS: HALOPERIDOL 5 MG TAB PO SCH ×2 (08:26→21:04)
[2022-08-05] MEDS: diphenhdrAMINE HCL 25 MG CAP PO SCH (08:26)
[2022-08-05] MEDS: OLANZapine 5 MG TAB PO SCH ×2 (08:27→21:04)
[2022-08-05] MEDS: LISINOPRIL 5 MG TAB PO SCH (08:36)
[2022-08-05 09:00] VITALS: BP 118/67
[2022-08-05 13:00] VITALS: BP 125/86
[2022-08-05 16:38] VITALS: BP 105/71
[2022-08-05 21:44] VITALS: BP 144/75
[2022-08-06 08:00] VITALS: BP 144/75
[2022-08-06] MEDS: diphenhdrAMINE HCL 25 MG CAP PO SCH (09:05)
[2022-08-06] MEDS: OLANZapine 5 MG TAB PO SCH ×2 (09:05→22:13)
[2022-08-06] MEDS: LISINOPRIL 5 MG TAB PO SCH (09:06)
[2022-08-06] MEDS: HALOPERIDOL 5 MG TAB PO SCH ×2 (09:06→22:13)
[2022-08-06 12:00] VITALS: BP 138/80
[2022-08-06] MEDS ORDERED: HALOPERIDOL LACTATE 5 MG/ML INJ VIAL IV PRN (12:45)
[2022-08-06] MEDS ORDERED: HALOPERIDOL LACTATE 5 MG/ML INJ VIAL ONE (12:50)
[2022-08-06 16:00] VITALS: BP 120/70
[2022-08-06 21:33] VITALS: BP 109/66
[2022-08-07 04:42] VITALS: BP 128/76
[2022-08-07] MEDS: diphenhdrAMINE HCL 25 MG CAP PO SCH (08:48)
[2022-08-07] MEDS: HALOPERIDOL 5 MG TAB PO SCH ×2 (08:49→23:04)
[2022-08-07] MEDS: OLANZapine 5 MG TAB PO SCH ×2 (08:50→23:04)
[2022-08-07] MEDS: LISINOPRIL 5 MG TAB PO SCH (09:47)
[2022-08-07 13:15] LABS: Albumin 3.7 g/dL (3.4-5.0); Calcium 8.6 mg/dL (8.5-10.1); Potassium 4.3 mmol/L (3.5-5.1)
[2022-08-07 13:20] LABS: BUN/Creatinine Ratio 26.7; Bilirubin, Total 0.4 mg/dL (0.2-1.0); Total Protein 6.8 g/dL (6.4-8.2)
[2022-08-07 22:00] VITALS: BP 111/82
[2022-08-08] MEDS: HALOPERIDOL LACTATE 5 MG/ML INJ VIAL IM PRN ×2 (00:11→20:13)
[2022-08-08] MEDS ORDERED: LORazepam 2MG/ML-1ML VIAL IM ONE (01:15)
[2022-08-08 05:00] VITALS: BP 125/86
[2022-08-08 08:30] VITALS: BP 113/80
[2022-08-08] MEDS: HALOPERIDOL 5 MG TAB PO SCH ×2 (09:15→21:58)
[2022-08-08] MEDS: OLANZapine 5 MG TAB PO SCH ×2 (09:15→21:58)
[2022-08-08] MEDS: diphenhdrAMINE HCL 25 MG CAP PO SCH (09:16)
[2022-08-08] MEDS: LISINOPRIL 5 MG TAB PO SCH (09:18)
[2022-08-08 17:00] VITALS: BP 135/89
[2022-08-08] MEDS ORDERED: LORazepam 0.5 MG TAB PO PRN (20:15)
[2022-08-08 22:15] VITALS: BP 132/77
[2022-08-09 05:00] VITALS: BP 115/79
[2022-08-09 08:00] VITALS: BP 118/74
[2022-08-09 08:50] VITALS: BP 118/74
[2022-08-09] MEDS: LISINOPRIL 5 MG TAB PO SCH (09:32)
[2022-08-09] MEDS: HALOPERIDOL 5 MG TAB PO SCH ×2 (09:32→21:57)
[2022-08-09] MEDS: diphenhdrAMINE HCL 25 MG CAP PO SCH (09:32)
[2022-08-09] MEDS: OLANZapine 5 MG TAB PO SCH ×2 (09:32→21:57)
[2022-08-09 13:00] VITALS: BP 124/72
[2022-08-09 16:55] VITALS: BP 139/85
[2022-08-09 21:52] VITALS: BP 134/95
[2022-08-10 04:46] VITALS: BP 138/96
[2022-08-10 08:00] VITALS: BP 133/79
[2022-08-10 09:00] VITALS: BP 133/79
[2022-08-10] MEDS: LISINOPRIL 5 MG TAB PO SCH (09:52)
[2022-08-10] MEDS: HALOPERIDOL 5 MG TAB PO SCH ×2 (09:52→22:20)
[2022-08-10] MEDS: diphenhdrAMINE HCL 25 MG CAP PO SCH (09:52)
[2022-08-10] MEDS: OLANZapine 5 MG TAB PO SCH ×2 (09:52→22:21)
[2022-08-10 13:00] VITALS: BP 120/75
[2022-08-10 20:00] VITALS: BP 133/79
[2022-08-11 07:30] VITALS: BP 108/57
[2022-08-11] MEDS: LISINOPRIL 5 MG TAB PO SCH (10:00)
[2022-08-11] MEDS: OLANZapine 5 MG TAB PO SCH (10:20)
[2022-08-11] MEDS: diphenhdrAMINE HCL 25 MG CAP PO SCH (10:20)
[2022-08-11] MEDS: HALOPERIDOL 5 MG TAB PO SCH (10:21)
[2022-08-11 10:22] VITALS: BP 108/57
[2022-08-11 20:23] VITALS: BP 114/77
== END 2022-08-11 20:47 | DRG 861 ==
LOC: ER 16:21 → EDBD 16:21 → TELE 07-15 14:38 → TELE-WESTW 07-16 21:04 → WEST WING 07-21 11:40 → TELE-WESTW 07-22 07:44 → WEST WING 08-08 20:45
PROVIDERS: ADMIT Nurse Practitioner; ATTEND Nurse Practitioner
DX: R41.82 Altered mental status, unspecified (principal); F25.9 Schizoaffective disorder, unspecified; F23 Brief psychotic disorder; E66.9 Obesity, unspecified; F12.10 Cannabis abuse, uncomplicated; Z20.822 Contact with and (suspected) exposure to COVID-19; F15.10 Other stimulant abuse, uncomplicated; Z79.899 Other long term (current) drug therapy; Z68.22 Body mass index [BMI] 22.0-22.9, adult; Z80.3 Family history of malignant neoplasm of breast
CPT/HCPCS: 36415; 70450; 71045; 80048; 80053; 80061; 80164; 80307; 80320; 81001; 83735; 84443; 84484; 85025; 87081; 87426; 93005; 96372; 96374; 96375; G0378